=== PATIENT | female | born 1955 | race American Indian/Alaskan Native ===

== ENCOUNTER 2017-08-08 17:42 | Emergency (ER) | payer OTHER ==
[2017-08-08 19:47] LABS: Hematocrit 40.1 % (30.3-42.9); Hemoglobin 13.6 gm/dl (10.1-14.3); Mean Corpuscular HGB Conc 34 % (30-34); Mean Corpuscular Hemoglobin 30 pg (28-32); Mean Corpuscular Volume 88 fl (79-97); Platelet Count 253 K/mm3 (140-440); Red Blood Count 4.56 M/mm3 (3.65-5.03); Red Cell Distribution Width 13.2 % (13.2-15.2); White Blood Count 4.6 K/mm3 (4.5-11.0)
[2017-08-08 19:51] LABS: Bacteria,Urine 1+ /HPF (Negative); Bilirubin,Urine NEG (Negative); Blood,Urine NEG (Negative); Ketones,Urine NEG (Negative); Leukocyte Esterase,Urine SM (Negative); Mucus,Urine FEW /HPF; Nitrite,Urine NEG (Negative); Protein,Urine <15 mg/dL mg/dL (Negative); Urobilinogen,Urine < 2.0 mg/dL (<2.0)
[2017-08-08 19:54] LABS: BUN/Creatinine Ratio 25; Blood Urea Nitrogen 20 mg/dL (7-17); Calcium 9.5 mg/dL (8.4-10.2); Carbon Dioxide 30 mmol/L (22-30); Glucose 107 mg/dL (65-100)
[2017-08-08 19:55] LABS: Anion Gap 17 mmol/L; Potassium 4.5 mmol/L (3.6-5.0); Sodium 140 mmol/L (137-145)
--- NOTE | 2017-08-08 20:26 | Emergency Department Report ---
ED Dizziness HPI - General Chief Complaint: Dizziness Stated Complaint: STOMACH PAIN Time Seen by Provider: 08/08/17 20:15 Source: patient Mode of arrival: Ambulatory Limitations: No Limitations - History of Present Illness Initial Comments: Patient is 62 years old female history of high blood pressure presented to the ER with more than 2 month history of dizziness, comes and goes. Patient stated that she feel the room was spinning and she became lightheaded. She denied any chest pain or shortness of breath. Patient denied any weakness numbness or tingling sensation, no headache, no bowel or bladder incontinence. MD Complaint: dizziness, lightheadedness, near syncope -: month(s) Timing: waxing/waning Description: sense of movement, lightheadedness History of Same: Yes History of Trauma: No Severity: moderate Improves With: remaining still Worsens With: position Associated Symptoms: denies other symptoms. denies: ataxia, chest pain, confusion, cough, diaphoresis, fever/chills, loss of appetite, malaise, rash, seizure, shortness of breath, syncope, weakness - Related Data Allergies Allergy/AdvReac Type Severity Reaction Status Date / Time No Known Allergies Allergy Unverified 08/08/17 18:04 ED Review of Systems ROS: Stated complaint: STOMACH PAIN Other details as noted in HPI Comment: All other systems reviewed and negative Constitutional: denies: chills, fever Respiratory: denies: cough, orthopnea, shortness of breath, SOB with exertion Cardiovascular: denies: chest pain, palpitations, dyspnea on exertion, orthopnea , edema, syncope, paroxysmal nocturnal dyspnea Gastrointestinal: denies: abdominal pain, nausea, vomiting, diarrhea, constipation, hematemesis Genitourinary: denies: urgency, dysuria, frequency, hematuria Neurological: vertigo. denies: headache, weakness, numbness, paresthesias, confusion, abnormal gait ED Past Medical Hx - Past Medical History Hx Hypertension: Yes - Surgical History Past Surgical History?: No - Social History Smoking Status: Never Smoker Substance Use Type: None ED Physical Exam - General Limitations: No Limitations General appearance: alert, in no apparent distress - Head Head exam: Present: atraumatic, normocephalic, normal inspection - Eye Eye exam: Present: normal appearance, PERRL, EOMI Pupils: Present: normal accommodation - ENT ENT exam: Present: normal exam, normal orophraynx, mucous membranes moist, other (left ear with serous otitis media) - Neck Neck exam: Present: normal inspection, full ROM. Absent: tenderness, meningismus, lymphadenopathy, thyromegaly - Respiratory Respiratory exam: Present: normal lung sounds bilaterally. Absent: respiratory distress, wheezes, rales, rhonchi, stridor, chest wall tenderness, accessory muscle use, decreased breath sounds, prolonged expiratory - Cardiovascular Cardiovascular Exam: Present: regular rate, normal rhythm, normal heart sounds - GI/Abdominal GI/Abdominal exam: Present: soft, normal bowel sounds. Absent: distended, tenderness, guarding, rebound, rigid, organomegaly, mass, bruit, pulsatile mass , hernia - Extremities Exam Extremities exam: Present: normal inspection, full ROM, normal capillary refill - Back Exam Back exam: Present: normal inspection, full ROM, muscle spasm. Absent: tenderness, CVA tenderness (R), CVA tenderness (L), paraspinal tenderness, vertebral tenderness - Neurological Exam Neurological exam: Present: alert, oriented X3, CN II-XII intact, normal gait, reflexes normal. Absent: motor sensory deficit - Psychiatric Psychiatric exam: Present: normal affect, normal mood - Skin Skin exam: Present: warm, intact, normal color ED Course Vital Signs 08/08/17 08/08/17 08/08/17 17:58 20:04 21:15 Temperature 98.5 F Pulse Rate 106 H 75 Respiratory 18 12 16 Rate Blood Pressure 135/86 122/72 O2 Sat by Pulse 100 100 99 Oximetry - Reevaluation(s) Reevaluation #1: 08/08/17 22:12 Patient currently denying any symptoms. I informed about how her blood work results and CT brain and the need to follow-up with primary care physician for possible follow-up with ENT doctor if her symptoms continue. ED Medical Decision Making - Lab Data Result diagrams: 08/08/17 19:29 08/08/17 19:29 - EKG Data -: EKG Interpreted by Ia EKG shows normal: sinus rhythm Rate: normal - EKG Data Interpretation: no acute changes - Radiology Data Radiology results: report reviewed Referring Physician: CAITLYN RENDON Patient Name: JOSIANE GARSIA Date of : 1955 Sex: Female Report Date: 2017-08-08 Report Status: Finalized Findings [facility] [address] [place] [address] Cat Scan Report Signed Patient: JOSIANE GARSIA MR#: [id number] : 1955 Acct:[id number] Age/Sex: 62 / F ADM Date: 08/08/17 Loc: ED Attending Dr: Ordering Physician: CAITLYN RENDON Date of Service: 08/08/17 Procedure(s): CT head/brain wo con Accession Number(s): [id number] cc: CAITLYN RENDON FINAL REPORT EXAM: CT HEAD/BRAIN WO CON HISTORY: dizziness COMPARISON: None available. TECHNIQUE: Axial images obtained skull base through vertex. FINDINGS: No acute intracranial hemorrhage, midline shift or pathologic extra axial fluid collection. Ventricles and cisterns are normal in size and configuration for the patient's age. Ramos-white differentiation preserved. Calvarium grossly intact. Orbits are grossly unremarkable. Visualized para-nasal sinuses and mastoid air cells are clear. 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 IMPRESSION: No grossly acute intracranial abnormality. Transcribed By: LMA Dictated By: CHARLIE PALMA MD Electronically Authenticated By: CHARLIE PALMA MD Signed Date/Time: 08/08/171700 DD/ 00 TD/TT: 08/08/171700 Critical care attestation.: If time is entered above; I have spent that time in minutes in the direct care of this critically ill patient, excluding procedure time. ED Disposition Clinical Impression: Dizziness, Serous otitis media Disposition: DC-01 TO HOME OR SELFCARE Is pt being admited?: No Condition: Stable Instructions: Lightheadedness (ED), Dizziness (ED) Referrals: CHYNA MALDONADO MD [Primary Care Provider] - 3-5 Days
--- NOTE | 2017-08-08 21:05 | Cat Scan Report ---
FINAL REPORT EXAM: CT HEAD/BRAIN WO CON HISTORY: dizziness COMPARISON: None available. TECHNIQUE: Axial images obtained skull base through vertex. FINDINGS: No acute intracranial hemorrhage, midline shift or pathologic extra axial fluid collection. Ventricles and cisterns are normal in size and configuration for the patient's age. Ramos-white differentiation preserved. Calvarium grossly intact. Orbits are grossly unremarkable. Visualized para-nasal sinuses and mastoid air cells are clear. 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 IMPRESSION: No grossly acute intracranial abnormality.
[2017-08-08 22:40] VITALS: BP 99/62
== END 2017-08-08 22:53 | disposition home or self-care (01) ==
LOC: ED 17:42
DX: R42 Dizziness and giddiness (principal); H65.90 Unspecified nonsuppurative otitis media, unspecified ear; I10 Essential (primary) hypertension
CPT/HCPCS: 36415; 70450; 80048; 81001; 84443; 84484; 85027; 93005; 93010